=== PATIENT | male | born 2000 | race Caucasian/White ===

== ENCOUNTER 2023-02-09 19:05 | Emergency (ER) | payer BC ==
[~2023-02-09] VITALS: Ht 182.9 cm; Wt 81.8 kg
[2023-02-09 19:09] VITALS: TEMP 98.1
[2023-02-09] MEDS ORDERED: PROAIR HFA0.09 MG/AC IH (19:11)
[2023-02-09 19:48] LABS: BASO % 0.4 % (0.0-2.0); EOS # 0.1 K/mm3 (0.0-0.7); EOS % 1.8 % (0.0-4.0); GRAN # 3.6 K/mm3 (1.4-6.5); GRAN % 71.3 % (42.2-75.2); LYMPH % 19.7 % (20.0-51.0); MEAN CELL VOLUME 85 fl (80.0-95.0); MEAN CORPUSCULAR HEMOGLOBIN 30 pg (26-32); MEAN CORPUSCULAR HGB CONC 36 g/dl (33.0-37.0); MEAN PLATELET VOLUME 9.7 fl (7.4-10.4); MONO # 0.3 K/mm3 (0.1-0.6); MONO % 6.4 % (1.7-9.3); PLATELET COUNT 215 K/mm3 (130-400); REDCELL DISTRIBUTION WIDTH-CV 12.3 % (11.5-14.5)
[2023-02-09 20:07] LABS: ALBUMIN 4.3 gm/dL (3.5-5.0); BILIRUBIN,TOTAL 0.4 mg/dL (0.2-1.2); CALCIUM 10.2 mg/dL (8.4-10.2); CREATININE, serum 0.92 mg/dL (0.72-1.25); POTASSIUM 4.5 mmol/L (3.5-4.5); TOTAL PROTEIN 7.4 gm/dL (6.2-8.1)
[2023-02-09 20:27] VITALS: BP 131/79; PULSE 95
[2023-02-09 20:55] LABS: TROPONIN-I 0.01 ng/mL (0.00-0.033)
== END 2023-02-09 20:32 | disposition home or self-care (01) ==
LOC: COL.ER 19:05
PROVIDERS: Nurse Practitioner Primary Care
DX: R07.9 Chest pain, unspecified (principal)